=== PATIENT | female | born 1985 | race Caucasian/White ===

== ENCOUNTER 2020-09-05 08:19 | Day surgery (SDC) | payer MEDICAID ==
[~2020-09-05] VITALS: Ht 175.3 cm; Wt 126.1 kg
[~2020-09-05 08:19] MED LIST: LISINOPRIL10 MG PO; PROZAC20 MG PO
[2020-09-05 08:48] LABS: BASOPHILS 0.3 % (0-2); EOSINOPHILS 1.1 % (0-7); HEMATOCRIT 32.9 % (36.0-48.0); HEMOGLOBIN 9.7 g/dL (12-16); IMMATURE GRANULOCYTES 0.3 % (0-5); LYMPHOCYTE ABS# 2.13 10x3/uL (1.18-3.74); LYMPHOCYTES 28.8 % (15-50); MCH 21.5 pg (26.0-34.0); MCHC 29.5 g/dL (31.0-37.0); MCV 72.9 fL (80.0-100.0); MEAN PLATELET VOLUME 9.3 fL (7.4-10.4); MONOCYTES 3.9 % (2-11); NEUTROPHIL ABS# 4.86 10x3/uL (1.56-6.13); NEUTROPHILS 65.6 % (40-80); PLATELET COUNT 428 10x3/uL (130-400); RBC 4.51 10x6/uL (4.00-5.40); RDW 16.6 % (11.5-14.5); WBC 7.4 10x3/uL (4.8-10.8)
[2020-09-05 09:04] LABS: ALBUMIN 3.2 g/dL (3.4-5.0); ALKALINE PHOSPHATASE 117 U/L (30-120); ALT (SGPT) 21 U/L (10-68); BILIRUBIN - TOTAL 0.15 mg/dL (0.2-1.3); CALC OSMOLALITY 271 mosm/kg (275-300); CALCIUM 8.8 mg/dL (8.5-10.1); CARBON DIOXIDE 27.6 mmol/L (21.0-32.0); CHLORIDE - SERUM 103 mmol/L (98-107); CREATININE - SERUM 0.8 mg/dL (0.6-1.3); GLUCOSE 90 mg/dL (74-106); POTASSIUM - SERUM 4.4 mmol/L (3.5-5.1); PROTEIN - SERUM 7.8 g/dL (6.4-8.2); SODIUM 135 mmol/L (136-145); UREA NITROGEN 17 mg/dL (7-18); eGFR NON AFRICAN AMERICAN 86 mL/min (90-120)
[2020-09-05 09:22] LABS: HCG URINE NEGATIVE (NEGATIVE)
[2020-09-05 10:16] VITALS: BP 116/78; Ht 175.3 cm; Wt 126.1 kg
--- NOTE | 2020-09-05 15:25 | NUR ---
NOTIFIED PT'S FAMILY, KARLIE JAQUEZ, THAT SHE IS BACK IN HER ROOM AND WILL BE HERE FOR AT LEAST 1 HOUR, PROBABLY CLOSER TO 2 HOURS. WE WILL NOTIFY HIM APPROX 10-15 MIN. BEFORE PT IS READY TO LEAVE ALLOWING HIM TIME TO GET HERE. HE VOICED UNDERSTANDING.
--- NOTE | 2020-09-05 16:55 | NUR ---
DISCHARGE INSTRUCTIONS REVIEWED WITH PATIENT. EXPLAINED HOW TO TAKE OUT VILLARREAL CATHETER TOMORROW MORNING AND PROVIDED PT WITH 10 ML SYRINGE. 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 PT VOICED UNDERSTANDING OF ALL INSTRUCTIONS GIVEN. IV THEN DC'D WITH CATH TIP INTACT. PT ASSISTED TO GET DRESSED. NOTED SCANT AMOUNT OF LIGHT RED VAGINAL BLEEDING, PROVIDED PT WITH PHOEBE PAD.
--- NOTE | 2020-09-05 17:35 | NUR ---
DISCHARGED VIA W/C, ACCOMPANIED BY LESLI DAS, TO POV WITH SPOUSE DRIVING. ALL BELONGINGS AND DC PACKET WITH PATIENT.
== END 2020-09-05 17:35 | disposition home or self-care (01) ==
LOC: D.OPS 08:19
PROVIDERS: Anesthesiology; ATTEND Obstetrics & Gynecology Maternal & Fetal Medicine
DX: R10.2 Pelvic and perineal pain (principal); N80.9 Endometriosis, unspecified; N92.0 Excessive and frequent menstruation with regular cycle